=== PATIENT | male | born 1975 | race Native Hawaiian/Other Pacific Islander ===

== ENCOUNTER 2017-04-23 06:16 | Outpatient (CLI) | payer OTHER ==
[~2017-04-23 06:16] MED LIST: BENICAR HCT1 TAB PO; NEXIUM40 M1 PO; ROSU10TA PO; ULORIC80 MG OR
== END 2017-04-23 19:18 | disposition home or self-care (01) ==
LOC: LABW 06:16
DX: E78.4 Other hyperlipidemia (principal)
CPT/HCPCS: 36415; 83721

== ENCOUNTER 2021-10-09 15:38 | Outpatient (CLI) | payer OTHER | END 2021-10-09 18:56 | disposition home or self-care (01) | LOC: US 15:38 | PROVIDERS: ATTEND Nurse Practitioner Family | DX: R29.898 Other symptoms and signs involving the musculoskeletal system (principal); R20.0 Anesthesia of skin; G57.90 Unspecified mononeuropathy of unspecified lower limb ==

== ENCOUNTER 2021-10-15 15:49 | Outpatient (CLI) | payer OTHER | END 2021-10-15 18:59 | disposition home or self-care (01) | LOC: RAD 15:49 | PROVIDERS: ATTEND Nurse Practitioner Family | DX: S61.442A Puncture wound with foreign body of left hand, initial encounter (principal); Y92.9 Unspecified place or not applicable ==

== ENCOUNTER 2022-06-18 16:19 | Outpatient (CLI) | payer OTHER | END 2022-06-18 19:43 | disposition home or self-care (01) | LOC: RAD 16:19 | PROVIDERS: ATTEND Nurse Practitioner Family | DX: M25.512 Pain in left shoulder (principal) ==